=== PATIENT | male | born 1980 | race Caucasian/White ===

== ENCOUNTER 2016-11-25 06:04 | Emergency (ER) | payer SELFPAY ==
[~2016-11-25] VITALS: Ht 170.2 cm; Wt 90.5 kg
[2016-11-25 06:05] VITALS: BP 129/85; PULSE 73; RESP 24; TEMP 98.3
[2016-11-25] MEDS ORDERED: SODIUM CHLOR 0.9% 1000 ML INJ 1,000 ML IV ONE (06:08)
[2016-11-25] MEDS ORDERED: SODIUM CHLORIDE 0.9% FLUSH 10 ML FLUSH IVF PRN (06:15)
[2016-11-25] MEDS ORDERED: HYDROmorphone HCL PF 1 MG/ML VIAL IVS ONE (06:15)
[2016-11-25] MEDS ORDERED: ONDANSETRON HCL 4 MG/2 ML VIAL IVP ONE (06:15)
[2016-11-25] MEDS ORDERED: KETOROLAC TROMETHAMINE 30 MG/ML (IVP) VIAL IVP ONE (06:15)
[2016-11-25 06:22] LABS: AUTOMATED NEUTROPHIL # 4.1 TH/MM3 (1.8-7.7); BASOPHIL # 0.1 TH/MM3 (0-0.2); BASOPHIL % 1.5 % (0.0-2.0); EOSINOPHIL # 0.2 TH/MM3 (0-0.4); EOSINOPHIL % 3.3 % (0.0-4.0); HEMATOCRIT 41.8 % (39.0-51.0); HEMO FLAGS DIFF FINAL; LYMPHOCYTE # 2.2 TH/MM3 (1.0-4.8); MEAN CELL VOLUME 88.7 FL (80.0-100.0); MEAN CORPUSCULAR HEMOGLOBIN 30.1 PG (27.0-34.0); MEAN CORPUSCULAR HGB CONC 33.9 % (32.0-36.0); MONO % 6.4 % (0.0-8.0); NEUT % 57.8 % (16.0-70.0); PLATELET COUNT 278 TH/MM3 (150-450); RED BLOOD COUNT 4.71 MIL/MM3 (4.50-5.90); RED CELL DISTRIBUTION WIDTH 11.2 % (11.6-17.2); WHITE BLOOD COUNT 7.1 TH/MM3 (4.0-11.0)
--- NOTE | 2016-11-25 06:22 | PD ---
HPI Chief Complaint: Flank/Kidney Pain Time Seen by Provider: 06:07 Travel History International Travel<30 days: No Contact w/Intl Traveler<30days: No Traveled to known affect area: No History of Present Illness HPI The patient is a 36-year-old male with no history of kidney stones developed sudden onset left flank pain at 4 AM this morning. The pain gradually increased in intensity. It does not radiate to his testicles but goes to the left lower quadrant. He does have nausea without vomiting. He called the [facility] and they brought him here to the emergency department. He denies any fever. PFSH Social History Tobacco Use: No Allergies-Medications (Allergen,Severity, Reaction): Coded Allergies: No Known Allergies (Unverified , 11/25/16) Reported Meds & Prescriptions Reported Meds & Active Scripts Active Ibuprofen 800 Mg Tab 800 Mg PO TID Phenergan (Promethazine HCl) 25 Mg Tablet 25 Mg PO Q6H PRN Flomax (Tamsulosin HCl) 0.4 Mg Cap 0.4 Mg PO HS Percocet (Oxycodone-Acetaminophen) 7.5-325 mg Tab 1 Tab PO Q4H PRN Review of Systems ROS Limitations: Poor Historian Except as stated in HPI: all other systems reviewed are Neg Physical Exam Narrative GENERAL: The patient is alert, oriented 3 in moderate apparent distress with his left flank pain. He is difficult to talk to, he often doesn't answer questions because of the pain. SKIN: Focused skin assessment warm/dry. HEAD: Atraumatic. Normocephalic. EYES: Pupils equal and round. No scleral icterus. No injection or drainage. ENT: No nasal bleeding or discharge. Mucous membranes pink and moist. NECK: Trachea midline. No JVD. CARDIOVASCULAR: Regular rate and rhythm. No murmur appreciated. RESPIRATORY: No accessory muscle use. Clear to auscultation. Breath sounds equal bilaterally. GASTROINTESTINAL: Abdomen soft, with slight tenderness to direct palpation in the left flank, nondistended. Hepatic and splenic margins not palpable. No guarding or rebound is present. MUSCULOSKELETAL: No obvious deformities. No clubbing. No cyanosis. No edema. NEUROLOGICAL: Awake and alert. No obvious cranial nerve deficits. Motor grossly within normal limits. Normal speech. PSYCHIATRIC: The patient is extremely anxious; insight and judgment normal. Data Data Last Documented VS Vital Signs Date Time Temp Pulse Resp B/P Pulse Ox O2 Delivery O2 Flow Rate FiO2 11/25/16 06:05 98.3 73 24 129/85 Orders Complete Blood Count With Diff (11/25/16 06:08) Basic Metabolic Panel (Bmp) (11/25/16 06:08) Urinalysis - C+S If Indicated (11/25/16 06:08) Ct Abd/Pel W/O Iv Contrast (11/25/16 06:08) Ecg Monitoring (11/25/16 06:08) Iv Access Insert/Monitor (11/25/16 06:08) Ketorolac Inj (Toradol Inj) (11/25/16 06:15) Ondansetron Inj (Zofran Inj) (11/25/16 06:15) Sodium Chloride 0.9% Flush (Ns Flush) (11/25/16 06:15) Sodium Chlor 0.9% 1000 Ml Inj (Ns 1000 M (11/25/16 06:08) Hydromorphone Pf Inj (Dilaudid Pf Inj) (11/25/16 06:15) Tamsulosin (Flomax) (11/25/16 07:00) Labs Laboratory Tests Test 11/25/16 06:10 White Blood Count 7.1 TH/MM3 Red Blood Count 4.71 MIL/MM3 Hemoglobin 14.2 GM/DL Hematocrit 41.8 % Mean Corpuscular Volume 88.7 FL Mean Corpuscular Hemoglobin 30.1 PG Mean Corpuscular Hemoglobin 33.9 % Concent Red Cell Distribution Width 11.2 % Platelet Count 278 TH/MM3 Mean Platelet Volume 8.3 FL Neutrophils (%) (Auto) 57.8 % Lymphocytes (%) (Auto) 31.0 % Monocytes (%) (Auto) 6.4 % Eosinophils (%) (Auto) 3.3 % Basophils (%) (Auto) 1.5 % Neutrophils # (Auto) 4.1 TH/MM3 Lymphocytes # (Auto) 2.2 TH/MM3 Monocytes # (Auto) 0.5 TH/MM3 Eosinophils # (Auto) 0.2 TH/MM3 Basophils # (Auto) 0.1 TH/MM3 CBC Comment DIFF FINAL Differential Comment Sodium Level 140 MEQ/L Potassium Level 4.2 MEQ/L Chloride Level 108 MEQ/L Carbon Dioxide Level 23.2 MEQ/L Anion Gap 9 MEQ/L Blood Urea Nitrogen 12 MG/DL Creatinine 1.30 MG/DL Estimat Glomerular Filtration 62 ML/MIN Rate Random Glucose 103 MG/DL Calcium Level 9.5 MG/DL MDM Medical Decision Making Medical Screen Exam Complete: Yes Emergency Medical Condition: Yes Medical Record Reviewed: Yes Interpretation(s) The CT abdomen pelvis without IV contrast shows a 4 mm calculus in the distal left ureter just above the bladder. There is left obstructive uropathy and mild left hydronephrosis. Differential Diagnosis Left ureteral stone, urinary tract infection, malingering to obtain pain medications, electrolyte disorder Narrative Course It is now 0655 and the patient is pain and nausea free. It is likely passed the stone. However, I will writing the ibuprofen, Flomax, Phenergan and Percocet in case the pain recurs. If the pain recurs he should follow-up with a urologist. Diagnosis Primary Impression: Left ureteral calculus Additional Instructions: As we discussed, you should pass this stone on your own. Follow-up urology if you have problems passing the stone. I suspect at this time you probably passed the stone however we will write the prescriptions for Flomax which opens up your ureter and makes it easier to passed stones, Phenergan which is for nausea, Percocet for pain and Motrin which cuts down on the pain. The 2 medications that are taken regularly are Motrin and Flomax. Motrin is taken 3 times a day and Flomax is taken once daily. Scripts Ibuprofen 800 Mg [id number] Mg PO TID #44 TAB Ref 0 Prov:Augustin Drummond MD 11/25/16 Promethazine (Phenergan)25 Mg [id number] Mg PO Q6H PRN (NAUSEA OR VOMITING) #15 TAB Ref 0 Prov:Augustin Drummond MD 11/25/16 Tamsulosin (Flomax)0.4 Mg Cap0.4 Mg PO HS #15 CAP Ref 0 Prov:Augustin Drummond MD 11/25/16 Oxycodone-Acetaminophen (Percocet)7.5-325 mg Tab1 Tab PO Q4H PRN (PAIN) #15 TAB Ref 0 Prov:Augustin Drummond MD 11/25/16 Disposition: 01 DISCHARGE HOME Condition: Stable Augustin Drummond MD November 25, 2016 06:22
[2016-11-25 06:38] LABS: POTASSIUM 4.2 MEQ/L (3.5-5.1)
[2016-11-25 06:41] LABS: BICARBONATE 23.2 MEQ/L (21.0-32.0)
--- NOTE | 2016-11-25 06:42 | RADHPO ---
EXAM DATE/TIME: 11/25/2016 06:20 [facility] COMPARISON: No previous studies available for comparison. INDICATIONS : Left flank pain. ORAL CONTRAST: No oral contrast ingested. RADIATION DOSE: 20.69 CTDIvol (mGy) MEDICAL HISTORY : None SURGICAL HISTORY : None. ENCOUNTER: Initial ACUITY: 1 day PAIN SCALE: 7/10 LOCATION: Left flank TECHNIQUE: Volumetric scanning of the abdomen and pelvis was performed. Using automated exposure control and ad justment of the mA and/or kV according to patient size, radiation dose was kept as low as reasonably achievable to obtain optimal diagnostic quality images. FINDINGS: There is an approximately 4 mm calculus in the distal left ureter just above the bladder with left si ded obstructive uropathy and mild left hydronephrosis. No right sided renal calculi or obstructive ur opathy. No acute findings in the visualized liver, spleen, adrenals, right kidney or pancreas. No calcified g allstones or biliary ductal dilatation. Questionable mild mural thickening of the colon. No free air or free fluid. No bowel obstruction. CONCLUSION: 1. 4 mm calculus in distal left ureter with left obstructive uropathy and mild left hydronephrosis. Jose Wells MD on November 25, 2016 at 6:39 Board Certified Radiologist. This report was verified electronically.
[2016-11-25] MEDS ORDERED: IBUP800T23 PO (06:54)
[2016-11-25] MEDS ORDERED: PERC7.5T13 PO (06:54)
[2016-11-25] MEDS ORDERED: PROM25TA10 PO (06:54)
[2016-11-25] MEDS ORDERED: TAMS5CAP PO (06:54)
[2016-11-25] MEDS ORDERED: TAMSULOSIN HCL 0.4 MG CAP PO ONE (07:00)
[2016-11-25 07:04] LABS: BLOOD, URINE LARGE (NEG); GLUCOSE,URINE NEG (NEG); KETONE, URINE NEG (NEG); NITRITE,URINE NEG (NEG); PH, URINE 5.5 (5.0-8.5)
[2016-11-25 07:05] VITALS: BP 137/78; PULSE 96; RESP 16; TEMP 98; O2SAT 100
[2016-11-25 07:09] LABS: METHOD OF COLLECTION CLEAN CATCH; URINE COLOR YELLOW (YELLW/STRAW)
[2016-11-25 07:10] LABS: COMMENT (UR) CULT NOT INDICATED; CULTURE IF INDICATED CULT NOT INDICATED; RBC, URINE 0-3 /hpf (0-3)
[2016-11-25 07:41] VITALS: BP 115/67
== END 2016-11-25 07:46 | disposition home or self-care (01) ==
LOC: PHED 06:04
DX: N13.2 Hydronephrosis with renal and ureteral calculous obstruction (principal)
CPT/HCPCS: 74176; 80048; 81001; 85025; 96361; 96374; 96375; 99285; J1170; J1885; J2405; J7030